=== PATIENT | female | born 1950 | race Caucasian/White ===

== ENCOUNTER 2017-02-12 13:48 | Observation (INO) | payer MEDICARE ==
--- NOTE | ~2017-02-12 | HP ---
History And Physical [id number] [place]. [address] NAME: YUE CHENG : 46 STATUS : ADM Juliane PAT#: [id number] AGE: 66 ADM/REG DATE : 02/12/17 MR#: [id number] REPORT SERV DATE: 02/13/17 DICTATED BY: KRYSTLE GOMEZ DATE: 02/13/17 REPORT STATUS : Draft TRANSCRIBED BY: MODNik DATE: 02/13/17 DATE OF ADMISSION: 02/12/2017 CHIEF COMPLAINT: Chest pain. HISTORY OF PRESENT ILLNESS: This is a very pleasant 66-year-old female with cardiovascular risk factors of hypertension and premature family history of coronary artery disease, who woke around 5:30 yesterday morning with midsternal chest pain. She describes the pain as "stabbing," 10/10 in intensity with no specific radiation. The chest pain became more and more intense, and around 6:30, she woke her who gave her a total of eight baby aspirin. She states approximately one hour later, the chest pain subsided. She then laid in bed the rest of the morning and was feeling tired. Her family members urged her to come into the emergency department for further evaluation. She came to our emergency department around 1:30 and was admitted to our chest pain observation unit. Serial troponins have been normal. The patient denies any other recent episodes of chest pain. She denies personal history for SC, CVA, DVT, or PE. She denies any recent fever or chills. She does admit to a chronic "hacking cough" and states dyspnea on exertion which is also chronic. Occasional mild lower extremity edema but no calf tenderness. No PND or orthopnea. PAST MEDICAL HISTORY: 1. Hypertension. 2. Obesity. 3. Urinary incontinence. 4. Migraine headaches. 5. Arthritis with degenerative disk disease, particularly to the cervical spine. PAST SURGICAL HISTORY: Hysterectomy in 1976 and cholecystectomy in 2006. HOME MEDICATIONS: Amlodipine 5 daily, calcium carbonate 600 daily, vitamin D 1000 units daily, Neurontin 300 at bedtime, Neurontin 100 daily, hydrochlorothiazide 25 daily, Mobic 7.5 daily, Ditropan 5 at bedtime, potassium chloride 10 mEq daily, and a Fiber Gummy daily. ALLERGIES: ALLERGY TO HYDROCODONE, CAUSES RASH. SOCIAL HISTORY: The patient is . 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 Several grandchildren. She denies history of smoking, alcohol, or illicit drug use. FAMILY HISTORY: Her older son had an SC as well as stroke in his 40s. He is still living. The patient is one of 14 children. Three of her siblings have of an SC. REVIEW OF SYSTEMS: Negative except as indicated above. History And Physical [address] [address] NAME: YUE CHENG : 46 STATUS : ADM Juliane PAT#: [id number] AGE: 66 ADM/REG DATE : 02/12/17 MR#: [id number] REPORT SERV DATE: 02/13/17 DICTATED BY: KRYSTLE GOMEZ DATE: 02/13/17 REPORT STATUS : Draft TRANSCRIBED BY: SHANON DATE: 02/13/17 PHYSICAL EXAMINATION: VITAL SIGNS: Blood pressure 134/96, heart rate 80s, temperature 98.0, and pulse oximetry 98% room air. BMI 32.2. GENERAL: Well developed, well nourished, in no acute distress HEENT: Anicteric. Normal EOM. Head normocephalic. PERRLA, no xanthelasma. NECK: Supple. No JVD. Carotids normal without bruits. LUNGS: Clear to auscultation bilaterally anterior and posterior. Respirations even and unlabored. CARDIAC: S1, S2 regular rate and rhythm. No murmurs, rubs, or gallops. No chest wall tenderness. ABDOMEN: Normal bowel sounds. Soft and nontender to palpation. No masses or organomegaly. EXTREMITIES: No peripheral edema. DP/PT and radial pulses palpable bilaterally. No clubbing or cyanosis. SKIN: Warm and dry. Normal turgor. No pallor or cyanosis. MUSCULOSKELETAL: Moving all extremities x4. Normal muscle strength. NEURO/PSYCH: Alert and oriented with appropriate affect. LABORATORY DATA: White blood count 4.4, hemoglobin 13.0, and hematocrit 38.7. Sodium 142, potassium 3.3, BUN 20, and creatinine 0.9. Troponin less than 0.02, x2. Chest x-ray shows perhaps some mild cardiomegaly and some questionable left base atelectasis, which is not appreciated on exam. EKGs indicate normal sinus rhythm with an incomplete right bundle- branch block and possible inferior Q-waves. There is T-wave inversion on all three EKGs in the anterior leads. ASSESSMENT AND PLAN: 1. Midsternal chest pain in this 66-year-old female with cardiovascular risk factors of hypertension and family history for premature coronary artery disease. She has been observed overnight in the chest pain observation unit and has had no further chest pain. Troponins are negative. She does have an abnormal EKG, and I am requesting a historic EKG from Dr. Magalie You's office. If this looks fairly unchanged, we will send the patient for a nuclear stress test today to further differentiate any ischemic etiology to her chest pain. If this is low risk, we will discharge her home later today with close followup with her primary care physician. 2. Abnormal EKG with a right bundle-branch block and some T-wave inversions in the anterior leads. Plan as above. 3. Hypertension. Moderately elevated while she is here. The patient takes amlodipine and hydrochlorothiazide. We will continue to monitor and reinstate these medications. 4. Hypokalemia, likely due to her hydrochlorothiazide tab. She currently takes 10 mEq of potassium twice a day. I have encouraged her to take three tabs a day. 5. Family history for premature cardiovascular disease. DBT/SHANON Krystle Gomez NP History And Physical [address] [address] NAME: YUE CHENG : 46 STATUS : ADM Juliane PAT#: [id number] AGE: 66 ADM/REG DATE : 02/12/17 MR#: [id number] REPORT SERV DATE: 02/13/17 DICTATED BY: KRYSTLE GOMEZ DATE: 02/13/17 REPORT STATUS : Draft TRANSCRIBED BY: SHANON DATE: 02/13/17 / [id number] CC: Taylor Bear, MSN, [employer] Magalie You M.D.
[2017-02-12 14:10] LABS: BASOPHILS 0 %; EOSINOPHILS 2.3 %; ER CBC TAT 0 Hrs 03 Mins; HEMATOCRIT 38.7 % (36.0-48.0); LYMPHOCYTES 44.5 %; LYMPHOCYTES ABSOLUTE 1.96 10/3/uL (0.67-4.30); MANUAL DIFF NO %; MEAN CORPUS HGB CONC 33.6 g/dL (32.0-36.0); MEAN CORPUSCULAR HEMOGLOB 30.4 pg (26.0-34.0); MEAN CORPUSCULAR VOLUME 90.4 fL (80-100); MEAN PLATELET VOLUME 8.7 fL (9.2-13.0); MONOCYTES 6.6 %; MONOCYTES ABSOLUTE 0.29 10/3/uL (0.21-1.20); NEUTROPHILS 46.6 %; NEUTROPHILS ABSOLUTE 2.05 10/3/uL (2.02-8.40); PLATELET COUNT 226 10/3/uL (150-400); RBC DISTRIBUTION WIDTH 13.6 % (12.0-16.0); RED CELL COUNT 4.28 10/6/uL (4.0-5.6); WHITE BLOOD CELLS 4.4 10/3/uL (4.5-10.5)
[2017-02-12 14:19] LABS: PARTIAL THROMBO TIME 30.3 SEC (22.5-37.2); PROTIME (NOT ORD) 13.4 SEC (12.0-14.5)
[2017-02-12 14:26] LABS: CALCIUM, SERUM 9.5 MG/DL (8.5-10.4); CHEST PAIN PROFILE TAT 0 Hrs 19 Mins; CHLORIDE, SERUM 104 MMOL/L (96-112); CREATININE 0.94 MG/DL (0.55-1.02); GFR AFRICAN AMERICAN 72 ML/MIN (>=60); GFR NON AFRICAN AMERICAN 62 ML/MIN (>=60); GLUCOSE, SERUM 101 MG/DL (60-99); POTASSIUM, SERUM 3.5 MMOL/L (3.5-5.3); SODIUM, SERUM 143 MMOL/L (135-148); TROPONIN I <0.02 NG/ML (<0.05)
[2017-02-12 14:30] LABS: BUN (BLOOD UREA NITROGEN) 23 MG/DL (6-23); CO2 (CARBON DIOXIDE) 33 MMOL/L (24-34)
[2017-02-12] MEDS ORDERED: HYDROCHLOROT25 MG PO (16:34)
[2017-02-12] MEDS ORDERED: KLOR-CON 1010 MEQ PO (16:34)
[2017-02-12] MEDS ORDERED: NORV5 PO (16:34)
[2017-02-12] MEDS ORDERED: NEUR100 PO ×2 (16:36→16:37)
[2017-02-12] MEDS ORDERED: MOBIC7.5 PO (16:37)
[2017-02-12] MEDS ORDERED: VITAMIN D1000 UNI1 PO (16:38)
[2017-02-12] MEDS ORDERED: DITRO5 PO (16:38)
[2017-02-12] MEDS ORDERED: CALTRAT600 PO (16:38)
[2017-02-12] MEDS ORDERED: FIBER GUMMY PO (16:39)
[2017-02-13 05:16] LABS: BUN (BLOOD UREA NITROGEN) 20 MG/DL (6-23); CHLORIDE, SERUM 106 MMOL/L (96-112); CO2 (CARBON DIOXIDE) 32 MMOL/L (24-34); CREATININE 0.95 MG/DL (0.55-1.02); GFR AFRICAN AMERICAN 71 ML/MIN (>=60); GFR NON AFRICAN AMERICAN 62 ML/MIN (>=60); GLUCOSE, SERUM 102 MG/DL (60-99); POTASSIUM, SERUM 3.3 MMOL/L (3.5-5.3); SODIUM, SERUM 142 MMOL/L (135-148)
== END 2017-02-13 14:07 | disposition home or self-care (01) ==
LOC: ER 13:48 → CDU1 17:41 → CDU2 18:33
PROVIDERS: Clinical Nurse Specialist; Emergency Medicine
DX: R07.89 Other chest pain (principal); R94.31 Abnormal electrocardiogram [ECG] [EKG]; I10 Essential (primary) hypertension; G43.909 Migraine, unspecified, not intractable, without status migrainosus; M19.90 Unspecified osteoarthritis, unspecified site; M50.30 Other cervical disc degeneration, unspecified cervical region; R32 Unspecified urinary incontinence; E66.9 Obesity, unspecified; Z68.32 Body mass index [BMI] 32.0-32.9, adult; Z90.710 Acquired absence of both cervix and uterus; Z90.49 Acquired absence of other specified parts of digestive tract; Z82.49 Family history of ischemic heart disease and other diseases of the circulatory system; Z88.5 Allergy status to narcotic agent; Z79.1 Long term (current) use of non-steroidal anti-inflammatories (NSAID); Z79.899 Other long term (current) drug therapy
CPT/HCPCS: 71020; 80048; 83735; 84484; 85025; 85610; 85730; 93005; 93017; 96374; 99285; A9270-GY; A9502; C8928; G0378; J2405; Q9957